=== PATIENT | male | born 1945 | race Caucasian/White ===

== ENCOUNTER 2022-01-07 19:00 | Outpatient (CLI) | payer MEDICARE, OTHER | END 2022-01-07 19:01 | disposition home or self-care (01) | LOC: SLEEPLAB 19:00 | PROVIDERS: ATTEND Family Medicine | DX: G47.33 Obstructive sleep apnea (adult) (pediatric) (principal); E66.9 Obesity, unspecified; Z68.28 Body mass index [BMI] 28.0-28.9, adult | CPT/HCPCS: 95811 ==